=== PATIENT | male | born 1950 | race Caucasian/White ===

== ENCOUNTER 2021-01-12 12:51 | Outpatient (CLI) | payer MEDICARE, OTHER ==
[2021-01-12 13:47] VITALS: BP 133/80
--- NOTE | 2021-01-12 13:47 | SLEEP CARE CONSULTATION ---
Information from patient questionnaire entered by Mindi Miller MA. I have reviewed and concur with the information entered by Mindi Miller MA. This document represents the service I personally performed and the decisions made by , Angely Porter ARNP. History of Present Illness Service Date and Time: 01/12/2021 1251 Reason for Visit: New patient, Other (update supplies) Chief Complaint: reports: Other (need supplies) Date of Onset: about 6 years Usual bedtime: 1000 - - 0700 am Time it takes to fall asleep: 15 - 30 minutes Snores at night: Yes Observed to quit breathing while asleep: Yes Sleeps alone due to snoring: No Number of times waking at night: once or twice Reasons for waking at night: reports: Bathroom Toss, Turn, or Twitch while sleeping: Yes Recalls having dreams: Yes Usually gets out of bed at: 0700 - 0730 am Feels refreshed in the morning: Yes Morning headache: No Sleepy or fatigued during the day: No Ever fallen asleep while driving: No Takes day naps: No Dreams during day naps: No Prior sleep studies: Yes Year and Where: 2015 [facility] Type of Sleep Study: Home sleep study Additional HPI information: NOAM JENNINGS was previously diagnosed to have severe, AHI 54.3, obstructive sleep apnea-hypopnea syndrome and comes in today to establish care for CPAP therapy. He has been on a CPAP since 2016. - Parasomnia Symptoms Ever been unable to move upon waking from sleep: No Walks in sleep: No Talks in sleep: No Ever acted out dreams in sleep: No Ever felt weak in the knees when startled or emotional: Yes Bothered by creepy, crawly, restless sensations in legs: No CPAP Compliance Data - Data Reviewed with Patient Average duration of nightly device use: 8 hours 33 minutes Compliance rate %: 98 Current pressure setting (cmH2O): 12 -13 Average residual AHI: 0.8 Central apnea: .2 Obstructive apnea: .3 Compliance data discussion: He has been getting supplies from [employer]. He is using the Nuance Pro nasal pill ows mask, size small. He last changed his mask about 3 weeks ago. He does have a back up old mask if he needs it. Subjective Missed days of use due to: reports: other (power outage) Patient concerns: reports: mask leak noise (when rolls on side). denies: aerophagia, mask discomfort, air blowing in eyes, condensation in mask/hose, n gerry congestion, dry mouth, nose, throat, epistaxis, other Observed to snore while using device: No Current pressure setting perceived as: comfortable On therapy, patient: reports: sleeping better, awakening more refreshed, being more awake and alert during the day, more rested overall. denies: drowsiness while driving Initial [place] Sleepiness Scale score: 4 (in 2020) Past Medical History Past Medical History: reports: Hypertension, Diabetes, Arthritis, Gout Social History The patient's occupation is a RE. Patient is and lives in [place]. Have you smoked in the past 12 months: No Alcohol use: Yes Alcohol amount and frequency: 1 glass of wine , 2 x week Caffeine use: Yes Caffeine amount and frequency: 3 cups daily Family History Family history of sleep disordered breathing: Yes Family Hx Sleep Apnea: Sibling: Sleep apnea - Treated (brother on BIPAP) Allergies and Home Medications Known drug allergies: No Drug allergies reviewed: Yes (NKDA) Home medication list reviewed: Yes Allergy and home medication list: Metformin 500 mg, extended release Viagra 100 mg Lisinopril 10 mg Cetirizine 10 mg Centrum Silver Men's Vitamin D3 Aspirin 81 mg Review of Systems Cardiovascular: reports: high blood pressure Ear/Nose/Throat: reports: nasal congestion, tonsillectomy, wisdom teeth removed Musculoskeletal: reports: joint pain, back pain Physical Exam Vital signs obtained and entered by: Gisela MILLER CMA [facility] Blood Pressure: 133/80 (left) Cuff size: wrist Heart Rate: 77 O2 Saturation: 98 (with mask) Height: 5 ft 8 in Weight: 231 lb (with boots) Body Mass Index: 35.1 BMI Classification: Obese Heart: regular rate and rhythm Lungs: clear bilaterally Impression and Plan 1. Obstructive Sleep Apnea-Hypopnea Syndrome, severe, with good treatment compliance and excellent apnea control. On CPAP therapy, the patient has better sleep quality and is more rested overall. Patient has no issues with using his CPAP. He had been getting his supplies from [employer] but when he called them due to not getting supplies he found out that he needed an updated prescription. He called his last sleep provider and was told they were no longer servicing. He came in to be seen to get supplies. A DWO prescription will then be made. Patient advised to contact this office if further supply problems. Patient's apnea severity and rationale for treatment to reduce apnea, improve sleep quality and reduce cardiovascular and cerebrovascular events was reviewed. I also reviewed the benefit of consistent device use of CPAP for hypertension and diabetes. Patient has been maintaining his weight around 235 lbs, today his weight was 231 lbs. Currently patients BMI is 35.1. Thus patient is advised to try to lose weight. Patient was encouraged to lose weight for their overall health and to reduce apneas. He voiced understanding. * Continue auto CPAP pressure at 12-13 cmH2O * Update supplies * Notify me if snoring with mask or feeling that the pressure is too much or too little * Attempt to lose weight * Call this office if any problems using CPAP * Return for follow up in 1 year, or sooner if concerns arise Counseling Topics: Spare mask, Weight loss health impact Visit Type: In Office Time Spent with Patient (minutes): 30 Provider Statement: I spent 100% of the Face to Face Visit with the patient with greater than 50% spent counseling the patient and coordination of care.
== END 2021-01-12 12:52 | disposition home or self-care (01) ==
LOC: SC 12:51
PROVIDERS: ATTEND Nurse Practitioner Family
DX: G47.33 Obstructive sleep apnea (adult) (pediatric) (principal); E66.9 Obesity, unspecified; Z68.35 Body mass index [BMI] 35.0-35.9, adult
CPT/HCPCS: 99203; G0463; 99212

== ENCOUNTER 2022-01-26 13:15 | Outpatient (CLI) | payer MEDICARE, OTHER ==
[2022-01-26 13:55] VITALS: BP 130/78
--- NOTE | 2022-01-26 13:55 | SLEEP CARE CONSULTATION ---
Information from patient questionnaire entered by Alejandro Hancock. I have reviewed and concur with the information entered by Alejandro Hancock. This document represents the service I personally performed and the decisions made by , Angely Porter ARNP. History of Present Illness Service Date and Time: 01/26/2022 1315 Previous diagnosis: Severe, Obstructive Sleep Apnea-Hypopnea Syndrome AHI: 54.3 (in 2015) Reason for follow up: annual (RESMED) Equipment type: CPAP Equipment obtained from: [employer] (getting supplies) Mask style: Nasal pillows Mask brand: Respironics (Nuance Pro) Backup mask available: No (will keep old mask when replaced) Last cushion change: 2 weeks ago Prior sleep studies: Yes Year and Where: 2015 [facility] Type of Sleep Study: Home sleep study HPI additional information: NOAM JENNINGS was diagnosed to have severe, AHI 54.3, obstructive sleep apnea- hypopnea syndrome and returned today for CPAP therapy annual follow-up. Sleep Study - Results Type of Sleep Study: Home sleep study Prior sleep studies: Yes Year and Where: 2015 [facility] CPAP Compliance Data - Data Reviewed with Patient Average duration of nightly device use: 8 hours, 40 minutes Compliance rate %: 96 (10/29/21 to 01/26/22; 86/90 days used) Current pressure setting (cmH2O): 12-13 Average residual AHI: 1.0 Central apnea: 0.2 Obstructive apnea: 0.4 Subjective Missed days of use due to: reports: travel, other (power outage) Patient concerns: reports: mask leak noise (per when mask needs adjustment). denies: aerophagia, mask discomfort, air blowing in eyes, condensation in mask/hose, nasal congestion, dry mouth, nose, throat, epistaxis Observed to snore while using device: No Current pressure setting perceived as: comfortable On therapy, patient: reports: sleeping better, awakening more refreshed, being more awake and alert during the day, more rested overall. denies: drowsiness while driving Initial [place] Sleepiness Scale score: 4 (in 2020) Current [place] Sleepiness Scale score: 4 (01/26/22) Allergies and Home Medications Drug allergies reviewed: Yes (NKDA, adhesive on plastic bandages) Home medication list reviewed: Yes (no changes) Review of Systems Review of systems same as previous: Yes (no changes) Physical Exam Vital signs obtained and entered by: JACK ZIMMER Blood Pressure: 130/78 (left arm ) Heart Rate: 95 O2 Saturation: 97 Height: 5 ft 8 in Weight: 232 lb Body Mass Index: 35.2 BMI Classification: Obese Impression and Plan 1. Obstructive Sleep Apnea-Hypopnea Syndrome, severe, with good treatment compliance and good apnea control. On CPAP therapy, the patient has better sleep quality and is more rested overall. Patient has significant improvement of their sleep apnea and are satisfied with current CPAP therapy. His does complain about mask leaking noise but he is not sure if it is the mask leaking or the normal venting from the mask she is hearing. He states they have started using a white noise machine in the bedroom which has helped with this leaking noise affecting his 's sleep. Patient's apnea severity and rationale for treatment to reduce apnea, improve sleep quality and reduce cardiovascular and cerebrovascular events was reviewed. I also reviewed the benefit of consistent device use of CPAP for hypertension and diabetes. 2. Obesity, unspecified. Currently patients BMI is 35.2. Obesity increases the risk of apnea, CPAP pressure requirements and overall health risks especially cardiovascular and diabetes. Thus patient is advised to lose weight. The patie nt's CPAP pressure range should accommodate some weight loss. Symptoms to report for additional pressure adjustment discussed. * Continue auto CPAP pressure at 12-13 cmH2O * Update supplies * Notify me if snoring with mask or feeling that the pressure is too much or too little * Attempt to lose weight * Call this office if any problems using CPAP * Return for follow up in 1 year, or sooner if concerns arise Counseling Topics: Spare mask, Weight loss health impact Visit Type: In Office Time Spent with Patient (minutes): 20 Provider Statement: I spent 100% of the Face to Face Visit with the patient with greater than 50% spent counseling the patient and coordination of care.
== END 2022-01-26 13:16 | disposition home or self-care (01) ==
LOC: SC 13:15
PROVIDERS: ATTEND Nurse Practitioner Family
DX: G47.33 Obstructive sleep apnea (adult) (pediatric) (principal); E66.9 Obesity, unspecified; Z68.35 Body mass index [BMI] 35.0-35.9, adult
CPT/HCPCS: 99213; G0463; 99212

== ENCOUNTER 2022-08-12 16:53 | Outpatient (CLI) | payer MEDICARE, OTHER ==
--- NOTE | 2022-08-12 16:38 | SLEEP CARE CONSULTATION ---
Information from patient questionnaire entered by Joie Cheney. I have reviewed and concur with the information entered by Joie Cheney. This document represents the service I personally performed and the decisions made by me, Angely Porter ARNP. History of Present Illness Service Date and Time: 08/12/2022 1600 Previous diagnosis: Severe, Obstructive Sleep Apnea-Hypopnea Syndrome AHI: 54.3 (in 2015) Reason for follow up: first compliance after device update Equipment type: CPAP (RESMED Airsense 11, s/u 04/2022) Equipment obtained from: [employer] (getting supplies) Mask style: Nasal pillows Mask brand: Respironics (Nuance Pro) Backup mask available: Yes (old mask) Last cushion change: 2 weeks Prior sleep studies: Yes Year and Where: 2015 [facility] Type of Sleep Study: Home sleep study HPI additional information: NOAM JENNINGS was diagnosed to have severe, AHI 54.3, obstructive sleep apnea- hypopnea syndrome and returns via video telehealth visit today for CPAP therapy first compliance after updating device follow-up. Sleep Study - Results Type of Sleep Study: Home sleep study Prior sleep studies: Yes Year and Where: 2015 [facility] CPAP Compliance Data - Data Reviewed with Patient Average duration of nightly device use: 8 HRS 44 MINS Compliance rate %: 93 (07/12/22-08/10/22; days used) Current pressure setting (cmH2O): 12-13 Average residual AHI: 0.7 Central apnea: 0.2 Obstructive apnea: 0.4 Average large leak: 0.1 L/min Subjective Missed days of use due to: reports: travel ( and forgot power supply) Patient concerns: reports: mask leak noise, dry mouth, nose, throat (dry mouth, occasionally when oral venting). denies: aerophagia, mask discomfort, air blowing in eyes, condensation in mask/hose, nasal congestion, epistaxis Observed to snore while using device: No Current pressure setting perceived as: comfortable On therapy, patient: reports: sleeping better, awakening more refreshed, being more awake and alert during the day, more rested overall. denies: drowsiness while driving Initial [place] Sleepiness Scale score: 4 (in 2020) Current [place] Sleepiness Scale score: 9 (08/12/22) Allergies and Home Medications Known drug allergies: No Drug allergies reviewed: Yes Home medication list reviewed: Yes (no changes) Allergy and home medication list: Allergies No Known Drug Allergies Allergy (Verified 08/11/22 14:32) Review of Systems Review of systems same as previous: Yes (no changes) Physical Exam Vital signs obtained and entered by: JOIE Rodriguez MA Blood Pressure: 122/78 (PER PT) Height: 5 ft 8 in (PER PT) Weight: 225 lb (PER PT) Body Mass Index: 34.2 BMI Classification: Obese Impression and Plan 1. Obstructive Sleep Apnea-Hypopnea Syndrome, severe, with good treatment compliance and good apnea control. On CPAP therapy, the patient has better sleep quality and is more rested overall. Patient has significant improvement of their sleep apnea and is satisfied with current CPAP therapy. He gets occasional dry mouth when he turns on his side and his mouth opens. He will then get a "elbow" in his side to remind him to close mouth. Patient denies problems with nasal congestion, epistaxis, skin irritation or aerophagia. Patient's apnea severity and rationale for treatment to reduce apnea, improve sleep quality and reduce ca rdiovascular and cerebrovascular events was reviewed. I also reviewed the benefit of consistent device use of CPAP for hypertension and diabetes. 2. Obesity, unspecified. Currently patients BMI is 34.2. Obesity increases the risk of apnea, CPAP pressure requirements and overall health risks especially cardiovascular and diabetes. Thus patient is advised to lose weight. * Continue auto CPAP pressure at 12-13 cmH2O * Notify me if snoring with mask or feeling that the pressure is too much or too little * Attempt to lose weight * Call this office if any problems using CPAP * Return for follow up in 1 year, or sooner if concerns arise Counseling Topics: Spare mask, Weight loss health impact Visit Type: Telehealth Video Video Type: Doximity Patient Location: Home Location of Provider: Office Patient agrees and consents to this telehealth visit type: Yes Patient agrees to have their insurance billed: Yes Time Spent with Patient (minutes): 12 Provider Statement: I spent 100% of the Telehealth Video Call with the patient with greater than 50% spent counseling the patient and coordination of care.
[2022-08-12 16:41] VITALS: BP 122/78
== END 2022-08-12 16:54 | disposition home or self-care (01) ==
LOC: SC 16:53
PROVIDERS: ATTEND Nurse Practitioner Family
DX: G47.33 Obstructive sleep apnea (adult) (pediatric) (principal); E66.9 Obesity, unspecified; Z68.34 Body mass index [BMI] 34.0-34.9, adult

== ENCOUNTER 2023-08-17 10:45 | Outpatient (CLI) | payer MEDICARE, OTHER ==
--- NOTE | 2023-08-17 11:13 | Sleep Patient Instructions ---
Sleep Center Visit Summary - Patient Visit Information Reason for Visit: Annual follow-up - Patient Instructions Additional Instructions: You will continue with CPAP therapy with pressure set at 12-13 cmH2O. A supply prescription will be updated with your DME. We encourage you to continue to try to lose weight. Please follow up with the sleep care office in 1 year. - Clinic Information Contact: [facility] [address] [place] [address] [email or web address] T: [phone]
--- NOTE | 2023-08-17 11:20 | SLEEP CARE CONSULTATION ---
Information from patient questionnaire entered by Joie Cheney. I have reviewed and concur with the information entered by Joie Cheney. This document represents the service I personally performed and the decisions made by me, Angely Porter ARNP. History of Present Illness Service Date and Time: 08/17/2023 1045 Previous diagnosis: Severe, Obstructive Sleep Apnea-Hypopnea Syndrome AHI: 54.3 (in 2015) Reason for follow up: annual (LAST SEEN 07/2022) Equipment type: CPAP (RESMED Airsense 11, s/u 04/2022) Equipment obtained from: [employer] (getting supplies) Mask style: Nasal pillows Mask brand: Respironics (Nuance Pro) Backup mask available: Yes Last cushion change: 3 weeks Prior sleep studies: Yes Year and Where: 2015 [facility] Type of Sleep Study: Home sleep study HPI additional information: NOAM JENNINGS was diagnosed to have severe, AHI 54.3, obstructive sleep apnea- hypopnea syndrome and returned today for CPAP therapy annual follow-up. Sleep Study - Results Type of Sleep Study: Home sleep study Prior sleep studies: Yes Year and Where: 2015 [facility] CPAP Compliance Data - Data Reviewed with Patient Average duration of nightly device use: 8 HRS 33 MINS Compliance rate %: 100 (08/15/22-08/14/23; 365/365 days used) Current pressure setting (cmH2O): 12-13 Average residual AHI: 0.7 Central apnea: 0.1 Obstructive apnea: 0.3 Average large leak: 0.5 L/min Subjective Patient concerns: reports: mask leak noise, dry mouth, nose, throat (some oral venting, not often). denies: aerophagia, mask discomfort, air blowing in eyes, condensation in mask/hose, nasal congestion, epistaxis Observed to snore while using device: No Current pressure setting perceived as: comfortable On therapy, patient: reports: sleeping better, awakening more refreshed, being more awake and alert during the day, more rested overall. denies: drowsiness while driving Initial [place] Sleepiness Scale score: 4 (in 2020) Current [place] Sleepiness Scale score: 4 (08/17/23) Allergies and Home Medications Known drug allergies: No Drug allergies reviewed: Yes Home medication list reviewed: Yes (no changes) Allergy and home medication list: Allergies No Known Drug Allergies Allergy (Verified 08/15/23 09:02) Review of Systems Review of systems same as previous: Yes (CHANGE) Physical Exam Vital signs obtained and entered by: JOIE Rodriguez MA Blood Pressure: 128/78 (RIGHT ARM) Cuff size: long Heart Rate: 74 O2 Saturation: 97 Height: 5 ft 8 in Weight: 214 lb Weight change since last visit: 11 lb loss Body Mass Index: 32.5 BMI Classification: Obese Impression and Plan 1. Obstructive Sleep Apnea-Hypopnea Syndrome, severe, with good treatment compliance and good apnea control. On CPAP therapy, the patient has better sleep quality and is more rested overall. He gets occasional dry mouth and mask leak noises when laying on his side. He thinks his mouth is coming open a little bit when he gets on his side. I checked the fit of his mask per his request and made a few adjustments. He is going to continue with this Nuance Pro nasal pillows mask. I also encouraged him to try a CPAP pillow and he voiced understanding. Patient's apnea severity and rationale for treatment to reduce apnea, improve sleep quality and reduce cardiovascular and cerebrovascular events was reviewed. I also reviewed the benefit of consistent device use of CPAP for hypertension, diabetes. 2. Obesity, unspecified. Currently patients BMI is 32.5. He has lost weight. Obesity increases the risk of apnea, CPAP pressure requirements and overall health risks especially cardiovascular and diabetes. Thus patient is advised to continue to try to lose weight. * Continue auto CPAP pressure at 12-13 cmH2O * Update supply prescription * Notify me if snoring with mask or feeling that the pressure is too much or too little * Attempt to lose weight * Call this office if any problems using CPAP * Return for follow up in 12 months, or sooner if concerns arise Counseling Topics: Spare mask, Weight loss health impact Prescriptions: Device supplies Follow up with Sleep Care in: 1 year Visit Type: In Office Time Spent with Patient (minutes): 20 Provider Statement: I spent 100% of the Face to Face Visit with the patient with greater than 50% spent counseling the patient and coordination of care.
[2023-08-17 11:24] VITALS: BP 128/78; O2SAT 97
== END 2023-08-17 10:46 | disposition home or self-care (01) ==
LOC: SC 10:45
PROVIDERS: ATTEND Nurse Practitioner Family
DX: G47.33 Obstructive sleep apnea (adult) (pediatric) (principal); E66.9 Obesity, unspecified; Z68.32 Body mass index [BMI] 32.0-32.9, adult
CPT/HCPCS: 99213; G0463; 99212